=== PATIENT | female | born 1965 | race Caucasian/White ===

== ENCOUNTER → 2017-08-25 | Outpatient (CLI) | payer BC, OTHER ==
[~2017-08-25] MED LIST: ASPIR 8181 MG PO; ATORVASTATIN CA20 MG PO; B COMPLEX1 EAC1 PO; B12INJ IM; ELIQUIS5 MG PO; IRON325 PO; LISINOPRIL20 MG PO; LOPRESSOR25 PO; MOBIC15 MG PO; OXYCODONE HCL 55 MG PO; PANTOPRAZOLE SO40 M1 PO; PRILOSEC20 MG PO; TRAMADOL 50 MG50 MG PO; TYLENOL325 MG PO; VENTOLIN HFA 1818 GM INH; VITAMIN D 5050000 I1 PO; XANAX 0.5 MG0.5 MG PO; XARELTO20 MG PO; ZESTRIL20 MG PO; ZESTRIL5 MG PO; hormone
== END ==
LOC: RAD 14:35
DX: R06.00 Dyspnea, unspecified (principal)

== ENCOUNTER → 2017-09-11 | Outpatient (CLI) | payer BC, OTHER | LOC: HYPER 06:45 | DX: S20.122A Blister (nonthermal) of breast, left breast, initial encounter (principal); I10 Essential (primary) hypertension; I25.10 Atherosclerotic heart disease of native coronary artery without angina pectoris; E78.5 Hyperlipidemia, unspecified; I25.2 Old myocardial infarction; Z85.3 Personal history of malignant neoplasm of breast; Z87.891 Personal history of nicotine dependence; Z86.73 Personal history of transient ischemic attack (TIA), and cerebral infarction without residual deficits; Z95.0 Presence of cardiac pacemaker; W90.2XXA Exposure to laser radiation, initial encounter; Y93.89 Activity, other specified; Y92.89 Other specified places as the place of occurrence of the external cause; Y99.8 Other external cause status ==